=== PATIENT | male | born 2000 | race American Indian/Alaskan Native ===

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

== ENCOUNTER 2021-02-20 10:47 | Emergency (ER) | payer SELFPAY ==
--- NOTE | 2021-02-20 11:40 | Emergency Department Report ---
Chief Complaint: Extremity Injury, Upper Stated Complaint: RIGHT ELBOW PAIN Time Seen by Provider: 02/20/21 11:32 - HPI History of Present Illness: 20-year-old -[place] male presents to the emergency room complaining of right elbow pain since . Patient states that he does repetitive work with his right arm. He states he was plans football onto the ball and was starting to have pain. He denies any swelling reports he does have full range of motion. He states he took some pain medicine did help but then the pain returned. Patient is only taking 1 dose. Has not applied any ice. - Exam Physical Exam: General: Awake, appropriately interactive, no acute distress. Neck: Supple. Full range of motion intact. Cardiovascular: Normal peripheral perfusion. Pulmonary: No respiratory distress. Patient is speaking normally without use of accessory muscles. Skin: No apparent rashes or lesions. Neurological: No facial asymmetry. Speech is clear. Follows commands. Patient is alert and oriented. Musculoskeletal: Full range of motion, no crepitus to right elbow no tenderness to palpate nonerythematous no edema test appreciated to right elbow. Able to bear weight and ambulate without difficulty. Distal neurovascular and motor/sensory function is intact. Psych: Cooperative. Appropriate mood and affect. MSE screening note: Focused history and physical exam performed. Due to findings the following was ordered: 20-year-old -[place] male presents to the emergency room complaining of right elbow pain since . Patient states that he does repetitive work with his right arm. He states he was plans football onto the ball and was starting to have pain. He denies any swelling reports he does have full range of motion. He states he took some pain medicine did help but then the pain returned. Patient is only taking 1 dose. Has not applied any ice. ED Disposition for MSE Clinical Impression: Left elbow pain Disposition: 01 HOME / SELF CARE / HOMELESS Is pt being admited?: No Does the pt Need Aspirin: No Condition: Stable Instructions: Joint Pain, [id number] Additional Instructions: Please take ibuprofen or Tylenol for pain management. Decrease overuse of your right elbow. Apply ice. Referrals: JACQUIE MATHEW MD [Staff Physician] - 3-5 Days Forms: Work/School Release Form(ED) Time of Disposition: 11:38
== END 2021-02-20 12:15 | disposition home or self-care (01) ==
LOC: ED 10:47
DX: M25.521 Pain in right elbow (principal)
CPT/HCPCS: 99281